=== PATIENT | female | born 1975 | race Caucasian/White ===

== ENCOUNTER 2016-09-07 16:29 | Emergency (ER) ==
[2016-09-07 16:35] VITALS: BP 121/79; TEMP 98.8; BMI 35.4
--- NOTE | 2016-09-07 17:01 | ED.PDOC ---
General ED Provider: Dr. KAILEE SCHNEIDER JR Chief Complaint: Extremity Pain/Injury Stated Complaint: states fell thru open vent for heating/air in home yesterday-- pain to rt leg--has large bruise to left leg but pain to rt knee radiates down-- pain when ambulates[ End ]YESTERDAY 98.8 83 16 96% 121/79 05/16 Time Seen by Physician: 16:56 Mode of Arrival: Walk-In Information Source: Patient Exam Limitations: No limitations Primary Care Provider: ORALIA VILLALOBOS Nursing and Triage Documentation Reviewed and Agree: No Review of Systems - Review Of Systems Constitutional: Reports: No symptoms Eyes: Reports: No symptoms Ears, Nose, Mouth, Throat: Reports: No symptoms Respiratory: Reports: No symptoms Cardiac: Reports: No symptoms GI: Reports: No symptoms : Reports: No symptoms Musculoskeletal: Reports: Joint swelling, Other Skin: Reports: Bruising Neurological: Reports: No symptoms, Other (note motion dysfunction consistent with tardive dyskinesia) Endocrine: Reports: No symptoms Hematologic/Lymphatic: Reports: No symptoms All Other Systems: Other Past Medical History - Past Medical History Previously Healthy: No Endocrine: Reports: Hypothyroid Cardiovascular: Reports: Hypertension Respiratory: Reports: None Hematological: Reports: Anemia Gastrointestinal: Reports: GERD Genitourinary: Reports: None, CKD ( ONE FUNCTIONING KIDNEY) Neuro/Psych: Reports: TIA, Anxiety, Depression, Bipolar Disorder Musculoskeletal: Reports: Arthritis Cancer: Reports: None Last Menstrual Period: last week Other Pertinent Past Medical History: RA, osteo arthritis, chronic neck pain , FIBROMYALGIA, - Surgical History General Surgical History: Reports: Appendectomy, Cholecystectomy, Tonsillectomy , Gastric Bypass, Other (mass removed rt hand, ) - Family History Family History: Reports: None - Social History Smoking Status: Current every day smoker, Heavy tobacco smoker Hx Substance Use: No Alcohol Screening: None Physical Exam - Physical Exam Appearance: Ill-appearing, Obese Pain Distress: Moderate Neck: Supple Respiratory: Airway patent Neurological: Motor intact (note motion chorea), Alert, Oriented Psychiatric: Affect appropriate, Mood appropriate Critical Care Note - Critical Care Note Total Time (mins): 0 Course - Course Orders, Labs, Meds: Orders Category Date Time Status KNEE, RIGHT 4 VIEWS Stat RADS 09/07/16 16:56 Taken TIBIA/FIBULA, RIGHT 2 VIEW Stat RADS 09/07/16 16:56 Taken Vital Signs: Temp Pulse Resp BP Pulse Ox 09/07/16 16:30 98.8 F 83 16 121/79 96 Departure - Departure Time of Disposition: 17:50 Disposition: HOME SELF-CARE Discharge Problem: Injury of lower extremity Instructions: Contusion in Adults (ED), Knee Pain (ED) Condition: Good Pt referred to PMD for follow-up: Yes Additional Instructions: LIMIT WEIGHT ON RIGHT LEG TYLENOL 650 G THREE OR FOUR TIMES A DAY NEEDED FOR PAIN ICE 20 MINUTES THREE TIES A DAY TO PAINFUL AREA(CLOTH OR TOWEL BETWEEN ICE AND SKIN) RECHECK PMD ONE WEEK; REPEAT X-RAYS IF NOT RESOLVED Allergies/Adverse Reactions: Allergies amoxicillin Adverse Reaction (Verified 09/07/16 16:36) CANNOT TAKE, COUNTERACTS WITH HER METHOTREXATE Iodine and Iodide Containing Produc Adverse Reaction (Verified 09/07/16 16:36) NSAIDS (Non-Steroidal Anti-Inflamma Adverse Reaction (Verified 09/07/16 16:36) Home Medications: Ambulatory Orders Duloxetine HCl [Cymbalta] 60 mg PO BID 06/30/13 Lisinopril/Hydrochlorothiazide [Lisinopril-Hctz 20-25 mg Tab] 1 each PO DAILY Alprazolam [Xanax] 1 mg PO QID 12/21/14 Lurasidone HCl [Latuda] 120 mg PO DAILY 12/21/14 Potassium Chloride [K-Dur] 20 meq PO TID 12/21/14 Folic Acid 1 mg PO DAILY 01/24/15 Methotrexate Sodium [Trexall] 7.5 mg PO WEEKLY 01/24/15 Pregabalin [Lyrica] 100 mg PO TID 04/23/15 Baclofen 10 mg PO TID 05/08/15 Gabapentin [Neurontin] 300 mg PO TID 05/08/15 Abatacept/Maltose [Orencia 250 mg Vial] 250 mg IM WEEKLY 07/27/15
--- NOTE | 2016-09-08 07:31 | DI ---
EXAM: Four views of the right knee HISTORY: Fall with tenderness at knee and ankle. COMPARISON: Knee x-rays 07/27/2015 FINDINGS: There is a oblique lucency through the proximal fibula and minimal periosteal reaction. P atella is normal in position without fracture. The tibia is unremarkable. The proximal femur is no rmal. The medial and lateral compartments are normal. The soft tissues are unremarkable. IMPRESSION: Findings are consistent with an oblique fracture through the proximal fibula.
--- NOTE | 2016-09-08 07:33 | DI ---
EXAM: Two views of the right tibia and fibula HISTORY: Fall into the heating vent. COMPARISON: Right knee x-rays same day and knee x-rays 07/27/2015 FINDINGS: There is an oblique lucency through the proximal fibula with adjacent periosteal reaction. The tibia is normal in appearance without fracture. There is no lytic or blastic lesion. The sof t tissues are unremarkable. IMPRESSION: Oblique lucency through the proximal fibula with adjacent periosteal reaction consisten t with a subtle fracture.
== END 2016-09-07 17:57 | disposition home or self-care (01) ==
LOC: ED 16:29
DX: M25.561 Pain in right knee (principal); S80.12XA Contusion of left lower leg, initial encounter; W17.2XXA Fall into hole, initial encounter; Y92.009 Unspecified place in unspecified non-institutional (private) residence as the place of occurrence of the external cause; F17.210 Nicotine dependence, cigarettes, uncomplicated
CPT/HCPCS: 99283

== ENCOUNTER 2017-02-02 11:29 | Emergency (ER) ==
[2017-02-02 11:29] VITALS: BMI 35.4
[2017-02-02 11:45] VITALS: BP 150/91; TEMP 99.1
--- NOTE | 2017-02-02 12:31 | ED.PDOC ---
General ED Provider: Dr. SERGIO WADE Chief Complaint: Extremity Pain/Injury Stated Complaint: NECK PAIN, HEADACHE , SHOULDER PAIN Time Seen by Physician: 11:29 (FALL 2 DAYS AGO) Mode of Arrival: Walk-In Information Source: Patient Exam Limitations: No limitations Primary Care Provider: ORALIA VILLALOBOS Nursing and Triage Documentation Reviewed and Agree: Yes (SEEN WITH STAFF) Trauma/Injury Complaint Exam - Head Injury Complaint/Exam Location of Pain: Reports: Forehead, Neck, Other (SHOULDER ) Mechanism of Injury: Reports: Trauma (FALL) Onset/Duration: 48 HRS Symptoms Are: Still present Initial Severity: Mild Current Severity: Mild Character: Reports: Dull Aggravating: Reports: None Alleviating: Reports: None Associated Signs and Symptoms: Reports: Neck pain. Denies: Confusion, Memory loss, Seizure, Epistaxis, Dental malocclusion, Nausea, Vomiting Loss of Consciousness: None SDH Risk Factors: Present: None Cervical Spine Injury Risk Factors: Present: Evidence of intoxication, Altered LOC, Focal neuro deficit, Distracting injuries Related Surgical History: Reports: None Glascow Coma Scale (see protocol): 15 Focal Weakness: Present: None Focal Sensory Loss: Present: None Gait: Normal Gag Reflex Present: Yes Finger to Nose: Normal Nexus Low Risk Criteria: No evidence of intoxicat., No Altered LOC, No focal neuro deficit, No distracting injuries Differential Diagnoses: Sprain, Strain, Trauma Review of Systems - Review Of Systems Constitutional: Reports: No symptoms Eyes: Reports: No symptoms Ears, Nose, Mouth, Throat: Reports: No symptoms Respiratory: Reports: No symptoms Cardiac: Reports: No symptoms GI: Reports: No symptoms : Reports: No symptoms Musculoskeletal: Reports: Joint pain (SHOULDER ), Neck pain Skin: Reports: No symptoms Neurological: Reports: Headache Endocrine: Reports: No symptoms Hematologic/Lymphatic: Reports: No symptoms All Other Systems: Reviewed and Negative Past Medical History - Past Medical History Previously Healthy: No Endocrine: Reports: Hypothyroid Cardiovascular: Reports: Hypertension Respiratory: Reports: None Hematological: Reports: Anemia Gastrointestinal: Reports: GERD Genitourinary: Reports: None, CKD ( ONE FUNCTIONING KIDNEY) Neuro/Psych: Reports: TIA, Anxiety, Depression, Bipolar Disorder Musculoskeletal: Reports: Arthritis Cancer: Reports: None Last Menstrual Period: 12/21 Other Pertinent Past Medical History: RA, osteo arthritis, chronic neck pain , FIBROMYALGIA, - Surgical History General Surgical History: Reports: Appendectomy, Cholecystectomy, Tonsillectomy , Gastric Bypass, Other (mass removed rt hand, ) - Family History Family History: Reports: None - Social History Smoking Status: Current every day smoker, Heavy tobacco smoker Hx Substance Use: No Alcohol Screening: None - Immunizations Tetanus Shot up to Date: Yes Physical Exam - Physical Exam Appearance: Well-appearing, No pain distress, Well-nourished Eyes: GEOVANNA, EOMI, Conjunctiva clear ENT: Ears normal, Nose normal, Oropharynx normal Respiratory: Airway patent, Breath sounds clear, Breath sounds equal, Respirations nonlabored Cardiovascular: RRR, Pulses normal, No rub, No murmur GI/: Soft, Nontender, No masses, Bowel sounds normal, No Organomegaly Musculoskeletal: Normal strength, ROM intact, No edema, No calf tenderness Skin: Warm, Dry, Normal color Neurological: Sensation intact, Motor intact, Reflexes intact, Cranial nerves intact, Alert, Oriented Psychiatric: Affect appropriate, Mood appropriate Critical Care Note - Critical Care Note Total Time (mins): 0 Course - Course Orders, Labs, Meds: Orders Category Date Time Status CT HEAD W/O CONTRAST Stat RADS 02/02/17 11:56 Ordered FOREARM, LEFT 2 VIEWS Stat RADS 02/02/17 11:57 Ordered HAND, LEFT 3 VIEWS Stat RADS 02/02/17 11:58 Ordered HUMERUS, LEFT 2VIEWS Stat RADS 02/02/17 11:57 Ordered SHOULDER, LEFT MIN 2V Stat RADS 02/02/17 11:56 Ordered WRIST, LEFT 3 VIEWS Stat RADS 02/02/17 11:58 Ordered Vital Signs: Temp Pulse Resp BP Pulse Ox 02/02/17 11:29 99.1 F 110 H 20 150/91 H 97 Departure - Departure Time of Disposition: 13:15 Disposition: HOME SELF-CARE Discharge Problem: Injury of upper extremity Shoulder sprain Qualifiers: Encounter type: initial encounter Shoulder sprain type: unspecified sprain Laterality: right Qualifier Code: (S43.401A) Unspecified sprain of right shoulder joint, initial encounter Head injury Qualifiers: Encounter type: initial encounter Qualifier Code: (S09.90XA) Unspecified injury of head, initial encounter Neck sprain Qualifiers: Encounter type: initial encounter Qualifier Code: (S13.9XXA) Sprain of joints and ligaments of unspecified parts of neck, initial encounter Instructions: Head Injury (ED), Cervical Sprain (ED), Shoulder Sprain (ED) Condition: Good Pt referred to PMD for follow-up: No Additional Instructions: Please call your Family Physician as soon as possible to schedule a follow-up appointment. Allergies/Adverse Reactions: Allergies amoxicillin Adverse Reaction (Verified 09/07/16 16:36) CANNOT TAKE, COUNTERACTS WITH HER METHOTREXATE Iodine and Iodide Containing Produc Adverse Reaction (Verified 09/07/16 16:36) NSAIDS (Non-Steroidal Anti-Inflamma Adverse Reaction (Verified 09/07/16 16:36) Home Medications: Ambulatory Orders Duloxetine HCl [Cymbalta] 60 mg PO BID 06/30/13 Lisinopril/Hydrochlorothiazide [Lisinopril-Hctz 20-25 mg Tab] 1 each PO DAILY Alprazolam [Xanax] 1 mg PO QID 12/21/14 Lurasidone HCl [Latuda] 120 mg PO DAILY 12/21/14 Potassium Chloride [K-Dur] 20 meq PO TID 12/21/14 Folic Acid 1 mg PO DAILY 01/24/15 Methotrexate Sodium [Trexall] 7.5 mg PO WEEKLY 01/24/15 Pregabalin [Lyrica] 100 mg PO TID 04/23/15 Baclofen 10 mg PO TID 05/08/15 Gabapentin [Neurontin] 300 mg PO TID 05/08/15 Abatacept/Maltose [Orencia 250 mg Vial] 250 mg IM WEEKLY 07/27/15
--- NOTE | 2017-02-02 12:46 | DI ---
EXAM: Radiographs, left humeral HISTORY: Initial presentation for left arm trauma. COMPARISON: None available. TECHNIQUE: Two views. FINDINGS: Bone mineralization is normal. There is no fracture or dislocation. The joint spaces ar e maintained. No focal soft tissue abnormality is seen. IMPRESSION: No fracture or dislocation.
--- NOTE | 2017-02-02 12:47 | DI ---
EXAM: Left shoulder three views HISTORY: Pain and fall COMPARISON: 12/14/2012 FINDINGS: No fracture or dislocation. The glenohumeral joint and acromioclavicular joint are normal . No focal soft tissue abnormality. Granulomatous calcifications noted. IMPERSSION: No fracture or dislocation.
--- NOTE | 2017-02-02 12:48 | DI ---
EXAM: Views of the left forearm HISTORY: Pain, fall TECHNIQUE: AP lateral views of the left forearm were obtained. FINDINGS: No acute fractures are seen. There is anatomic alignment. The soft tissues are normal. IMPRESSION: No acute fracture dislocation seen within the left forearm.
--- NOTE | 2017-02-02 12:52 | DI ---
Exam: Three x-rays of the left hand. Reason for exam: Pain with fall. COMPARISON: 03/03/2015 FINDINGS: No acute fracture or dislocation. The joint spaces are well maintained. No unexplained calcific soft tissue densities or radiopaque retained foreign bodies. The scaphoid appears intact. Impression: No acute fracture or dislocation in the left hand.
--- NOTE | 2017-02-02 12:53 | DI ---
EXAM: Three views left wrist. HISTORY: Pain. Fall. DATE: 02/02/2017. COMPARISON: None. TECHNIQUE: AP, lateral, oblique views of the left wrist were obtained. FINDINGS: No definite fracture or dislocation is identified. The carpal bones are well-aligned. T he joint spaces are maintained. No significant soft tissue swelling is identified. No radiodense fo reign bodies are seen. IMPRESSION: No identified fracture or dislocation.
--- NOTE | 2017-02-02 13:27 | CT ---
EXAM: CT Head HISTORY: Pain, fell and hit back of head and left-sided COMPARISON: 03/15/2016 TECHNIQUE: CT head performed without contrast FINDINGS: There is no mass effect, midline shift, or intracranial hemmorhage. Thacker white different iation is preserved. There is no extra-axial collection. The ventricles, sulci, and basal cisterns are patent and symmetric. There is no depressed calvarial fracture. The mastoid air cells are josé manuel ar. The visualized paranasal sinuses are clear. IMPRESSION: No acute intracranial abnormality.
== END 2017-02-02 13:41 | disposition home or self-care (01) ==
LOC: ED 11:29
DX: S43.401A Unspecified sprain of right shoulder joint, initial encounter (principal); S09.90XA Unspecified injury of head, initial encounter; S13.9XXA Sprain of joints and ligaments of unspecified parts of neck, initial encounter; W19.XXXA Unspecified fall, initial encounter; F17.210 Nicotine dependence, cigarettes, uncomplicated
CPT/HCPCS: 99283

== ENCOUNTER 2017-03-09 07:26 | Emergency (ER) ==
[2017-03-09 07:26] VITALS: BMI 35.4
[2017-03-09 07:38] VITALS: BP 157/90; TEMP 98.3
--- NOTE | 2017-03-09 07:55 | ED.PDOC ---
General ED Provider: Dr. KAILEE SCHNEIDER JR Chief Complaint: Earache Stated Complaint: Rt ear pain x 2 weeks. States PMD has been on vacation. Ear feels like it is "stopped up and itches." No drainage.[End]98.3 88 20 96% 157/ 90 7/10 Time Seen by Physician: 07:53 Mode of Arrival: Walk-In Information Source: Patient Exam Limitations: No limitations Primary Care Provider: ORALIA VILLALOBOS Nursing and Triage Documentation Reviewed and Agree: Yes Review of Systems - Review Of Systems Constitutional: Reports: No symptoms Eyes: Reports: No symptoms Ears, Nose, Mouth, Throat: Reports: Mouth pain Respiratory: Reports: No symptoms Cardiac: Reports: No symptoms GI: Reports: No symptoms : Reports: No symptoms Musculoskeletal: Reports: No symptoms Skin: Reports: No symptoms Neurological: Reports: No symptoms Endocrine: Reports: No symptoms Hematologic/Lymphatic: Reports: No symptoms All Other Systems: Other Past Medical History - Past Medical History Previously Healthy: No Endocrine: Reports: Hypothyroid Cardiovascular: Reports: Hypertension Respiratory: Reports: None Hematological: Reports: Anemia Gastrointestinal: Reports: GERD Genitourinary: Reports: None, CKD ( ONE FUNCTIONING KIDNEY) Neuro/Psych: Reports: TIA, Anxiety, Depression, Bipolar Disorder Musculoskeletal: Reports: Arthritis (RA, osteo arthritis). Denies: Back Pain ( chronic neck pain) Cancer: Reports: None Last Menstrual Period: 2 months (cycles are irregular) Other Pertinent Past Medical History: FIBROMYALGIA,ONE FUNCTIONING KIDNEY - Surgical History General Surgical History: Reports: Appendectomy, Cholecystectomy, Tonsillectomy , Gastric Bypass, Other (mass removed rt hand, ) - Family History Family History: Reports: None - Social History Smoking Status: Current every day smoker, Heavy tobacco smoker Hx Substance Use: No Alcohol Screening: None Physical Exam - Physical Exam Appearance: Well-appearing, No pain distress, Well-nourished Pain Distress: Moderate ENT: Erythema (bilateral EAC with right sided edema and tenderness admits to using hairpins) Neck: Supple Respiratory: Airway patent Critical Care Note - Critical Care Note Total Time (mins): 0 Course - Course Vital Signs: Temp Pulse Resp BP Pulse Ox 03/09/17 07:27 98.3 F 88 20 157/90 H 96 Departure - Departure Time of Disposition: 08:03 Disposition: HOME SELF-CARE Discharge Problem: Otitis externa Instructions: Otitis Externa (ED) Condition: Good Pt referred to PMD for follow-up: Yes Additional Instructions: cortisporin four times a day for three days to five days recheck PMD one week recheck ears(both) return if fever over 101.0 may use Tylenol or Tylenol#3 for pain NO REFILLS Prescriptions: Acetaminophen with Codeine [Tylenol #3 Tab] 1 - 2 tab PO QID PRN #20 tablet PRN Reason: PAIN Neomycin/Polymyxin B/Hc Otic [Cortisporin Otic Susp] 4 drop OT Q6H #1 bottle Allergies/Adverse Reactions: Allergies amoxicillin Adverse Reaction (Verified 09/07/16 16:36) CANNOT TAKE, COUNTERACTS WITH HER METHOTREXATE Iodine and Iodide Containing Produc Adverse Reaction (Verified 09/07/16 16:36) NSAIDS (Non-Steroidal Anti-Inflamma Adverse Reaction (Verified 09/07/16 16:36) sulfamethoxazole [From Bactrim] Adverse Reaction (Verified 03/09/17 07:38) trimethoprim [From Bactrim] Adverse Reaction (Verified 03/09/17 07:38) Home Medications: Ambulatory Orders Duloxetine HCl [Cymbalta] 60 mg PO BID 06/30/13 Lisinopril/Hydrochlorothiazide [Lisinopril-Hctz 20-25 mg Tab] 1 each PO DAILY Alprazolam [Xanax] 1 mg PO QID PRN 12/21/14 Lurasidone HCl [Latuda] 120 mg PO DAILY 12/21/14 Potassium Chloride [K-Dur] 20 meq PO TID 12/21/14 Folic Acid 1 mg PO DAILY 01/24/15 Methotrexate Sodium [Trexall] 7.5 mg PO WEEKLY 01/24/15 Pregabalin [Lyrica] 100 mg PO TID 04/23/15 Baclofen 10 mg PO TID 05/08/15 Gabapentin [Neurontin] 300 mg PO TID 05/08/15 Acetaminophen with Codeine [Tylenol #3 Tab] 1 - 2 tab PO QID PRN #20 tablet 10/21 Neomycin/Polymyxin B/Hc Otic [Cortisporin Otic Susp] 4 drop OT Q6H #1 bottle 10/21
== END 2017-03-09 08:22 | disposition home or self-care (01) ==
LOC: ED 07:26
DX: H60.90 Unspecified otitis externa, unspecified ear (principal); F17.210 Nicotine dependence, cigarettes, uncomplicated
CPT/HCPCS: 99282

== ENCOUNTER 2019-01-16 13:09 | Emergency (ER) ==
[2019-01-16 13:18] VITALS: BP 158/90; TEMP 99.7; BMI 29.8
[2019-01-16] MEDS ORDERED: DIFLUCAN PO STA (13:23)
--- NOTE | 2019-01-16 13:34 | ED.PDOC ---
General ED Provider: Dr. SERGIO WADE Chief Complaint: Rash Stated Complaint: RASH ABDOMEN/ GROIN Time Seen by Physician: 13:13 (SEE PHOTOS . SEEN WITH LADY HERNANDEZ [employer]) Mode of Arrival: Walk-In Information Source: Patient Exam Limitations: No limitations Primary Care Provider: MARSHA LEVIN Nursing and Triage Documentation Reviewed and Agree: Yes Does patient meet sepsis criteria?: No System Inflammatory Response Syndrome: Not Applicable Sepsis Protocol: For patient's 13 years and over: Temp is 96.8 and below OR 101 and greater Pulse >90 BPM Resp >20/minute Acutely Altered Mental Status Are patient's symptoms suggestive of a new infection, such as: -Pneumonia -Skin, Soft Tissue -Endocarditis -UTI -Bone, Joint Infection -Implantable Device -Acute Abdominal Infection -Wound Infection -Meningitis -Blood Stream Catheter Infection -Unknown Skin Complaint Exam - Skin Rash/Itching Complaint/Exam Onset/Duration: 2 DAYS Symptoms Are: Still present Initial Severity: Moderate Current Severity: Moderate (SEE PHOTOS) Location: SEE PHOTOS Aggravating: Reports: None Alleviating: Reports: None Associated Signs and Symptoms: Denies: Difficulty breathing, Fever, Chills Skin Findings: Present: Maculae (YEAST INFECTION) Review of Systems - Review Of Systems Constitutional: Reports: No symptoms Eyes: Reports: No symptoms Ears, Nose, Mouth, Throat: Reports: No symptoms Respiratory: Reports: No symptoms Cardiac: Reports: No symptoms GI: Reports: No symptoms : Reports: No symptoms Musculoskeletal: Reports: No symptoms Skin: Reports: Rash (SEE PHOTOS) Neurological: Reports: No symptoms Endocrine: Reports: No symptoms Hematologic/Lymphatic: Reports: No symptoms All Other Systems: Reviewed and Negative Past Medical History - Past Medical History Previously Healthy: No Endocrine: Reports: Hypothyroid Cardiovascular: Reports: Hypertension Respiratory: Reports: None Hematological: Reports: Anemia Gastrointestinal: Reports: GERD Genitourinary: Reports: None, CKD ( ONE FUNCTIONING KIDNEY) Neuro/Psych: Reports: TIA, Anxiety, Depression, Bipolar Disorder Musculoskeletal: Reports: Arthritis (RA, osteo arthritis). Denies: Back Pain ( chronic neck pain) Cancer: Reports: None Last Menstrual Period: N/A Other Pertinent Past Medical History: FIBROMYALGIA,ONE FUNCTIONING KIDNEY - Surgical History General Surgical History: Reports: Appendectomy, Cholecystectomy, Tonsillectomy , Gastric Bypass, Other (mass removed rt hand, ) - Family History Family History: Reports: None - Social History Smoking Status: Current every day smoker, Heavy tobacco smoker Hx Substance Use: No Alcohol Screening: None - Immunizations Tetanus Shot up to Date: Yes Physical Exam - Physical Exam Appearance: Well-appearing, No pain distress, Well-nourished Eyes: GEOVANNA, EOMI, Conjunctiva clear ENT: Ears normal, Nose normal, Oropharynx normal Respiratory: Airway patent, Breath sounds clear, Breath sounds equal, Respirations nonlabored Cardiovascular: RRR, Pulses normal, No rub, No murmur GI/: Soft, Nontender, No masses, Bowel sounds normal, No Organomegaly Musculoskeletal: Normal strength, ROM intact, No edema, No calf tenderness Skin: Warm, Dry (CONFLUENT RASH CONSISTANT OF YEAST . SEE PHOTOS) Neurological: Sensation intact, Motor intact, Reflexes intact, Cranial nerves intact, Alert, Oriented Psychiatric: Affect appropriate, Mood appropriate Critical Care Note - Critical Care Note Total Time (mins): 0 Course - Course Orders, Labs, Meds: Orders Category Date Time Status Fluconazole [Diflucan] MEDS 01/16/19 13:23 Discontinued 150 mg PO ONCE STA Medications Discontinued Medications Generic Name Dose Route Start Last Admin Trade Name Freq PRN Reason Stop Dose Admin Fluconazole 150 mg 01/16/19 13:23 Diflucan PO 01/16/19 13:24 ONCE STA Vital Signs: Temp Pulse Resp BP Pulse Ox 01/16/19 13:10 99.7 F H 113 H 24 158/90 H 97 Departure - Departure Time of Disposition: 13:34 Disposition: HOME SELF-CARE Discharge Problem: Pruritic rash, Intertriginous candidiasis Instructions: Yeast Infection (ED) Condition: Good Pt referred to PMD for follow-up: Yes IPMP verified?: No Additional Instructions: Please call your Family Physician as soon as possible to schedule a follow-up appointment.THIS IS A FORM OF A YEAST INFECTION PLEASE APPLY OINTMENT OUTLINED AND SEE YOUR M.D. Prescriptions: Clotrimazole/Betamethasone Dip [Lotrisone 45 gm] 1 applic TP BID 14 Days applic Allergies/Adverse Reactions: Allergies amoxicillin Adverse Reaction (Verified 09/07/16 16:36) CANNOT TAKE, COUNTERACTS WITH HER METHOTREXATE Iodine and Iodide Containing Produc Adverse Reaction (Verified 09/07/16 16:36) NSAIDS (Non-Steroidal Anti-Inflamma Adverse Reaction (Verified 09/07/16 16:36) sulfamethoxazole [From Bactrim] Adverse Reaction (Verified 03/09/17 07:38) trimethoprim [From Bactrim] Adverse Reaction (Verified 03/09/17 07:38) Home Medications: Ambulatory Orders Duloxetine HCl [Cymbalta] 60 mg PO BID 06/30/13 Lisinopril/Hydrochlorothiazide [Lisinopril-Hctz 20-25 mg Tab] 1 each PO DAILY Alprazolam [Xanax] 1 mg PO QID PRN 12/21/14 Lurasidone HCl [Latuda] 120 mg PO DAILY 12/21/14 Potassium Chloride [K-Dur] 20 meq PO TID 12/21/14 Folic Acid 1 mg PO DAILY 01/24/15 Methotrexate Sodium [Trexall] 7.5 mg PO WEEKLY 01/24/15 Pregabalin [Lyrica] 100 mg PO TID 04/23/15 Baclofen 10 mg PO TID 05/08/15 Gabapentin [Neurontin] 300 mg PO TID 05/08/15 Acetaminophen with Codeine [Tylenol #3 Tab] 1 - 2 tab PO QID PRN #20 tablet 10/21 Neomycin/Polymyxin B/Hc Otic [Cortisporin Otic Susp] 4 drop OT Q6H #1 bottle 10/21 Clotrimazole/Betamethasone Dip [Lotrisone 45 gm] 1 applic TP BID 14 Days applic 01/16/19
== END 2019-01-16 14:31 | disposition home or self-care (01) ==
LOC: ED 13:09
DX: B37.2 Candidiasis of skin and nail (principal); F17.210 Nicotine dependence, cigarettes, uncomplicated
CPT/HCPCS: 99282